=== PATIENT | female | born 1935 | race Caucasian/White ===

== ENCOUNTER 2018-10-11 11:09 | Emergency (ER) | payer OTHER ==
[2018-10-11] MEDS ORDERED: SODIUM CHLORIDE 0.9% 1000ML 1,000 ML IV ONE (11:49)
[2018-10-11 12:26] LABS: CALCIUM 9.2 mg/dl (8.5-10.1); CARBON DIOXIDE 28.7 mEq/L (21-32); CREATININE 1.46 mg/dl (0.60-1.00); INR 0.99 (0.86-1.12); POTASSIUM 3.9 mMol/L (3.5-5.1)
[2018-10-11 12:27] LABS: BASOPHILS % (AUTO) 1 % (0-3); EOSINOPHILS % (AUTO) 1 % (0-9); HEMATOCRIT 39 % (35-47); LYMPHOCYTES % (AUTO) 17.6 % (10-50); MEAN CORPUSCULAR HEMOGLOBIN 29.4 pg (27.0-32.0); MEAN CORPUSCULAR VOLUME 89 fL (81-99); MONOCYTES % (AUTO) 6.1 % (0-12)
[2018-10-11 12:52] LABS: APPEARANCE,URINE Cloudy; BILIRUBIN,URINE NEGATIVE (NEGATIVE); COLOR,URINE Yellow; GLUCOSE, URINE (UA) NEGATIVE (NEGATIVE); KETONES,URINE NEGATIVE (NEGATIVE); LEUKOCYTE ESTERASE ,URINE TRACE (NEGATIVE); NITRATE,URINE NEGATIVE (NEGATIVE); OCCULT BLOOD,URINE NEGATIVE (NEG-TRACE); PH,URINE 7.5; UROBILINOGEN,URINE 0.2 (0.2-1.0 EU)
[2018-10-11 13:05] LABS: BACTERIA 4+ (< 1+); CRYSTALS NEGATIVE (0-3 AVE/HPF); EPITHELIAL CELLS 0-3 (SQUAMOUS); RBC,URINE NEG (0-3AV/HPF)
[2018-10-11] MEDS ORDERED: CIPROFLOXACIN HCL 500 MG TAB PO SCH (13:30)
[2018-10-11] MEDS ORDERED: CIPROFLOXACIN HCL 500 MG TAB PO ONE (13:30)
[2018-10-11] MEDS ORDERED: AMLODIPINE 5 MG TAB PO ONE (14:40)
[2018-10-11] MEDS ORDERED: AMLODIPINE 5 MG TAB ONE (14:42)
[2018-10-11 16:19] VITALS: RESP 18; TEMP 97.3
[2018-10-11 16:20] VITALS: BP 156/78; PULSE 72; O2SAT 95
== END 2018-10-11 16:00 | disposition home or self-care (01) | DRG 641 ==
LOC: ED 11:09
DX: E86.0 Dehydration (principal); N39.0 Urinary tract infection, site not specified; R55 Syncope and collapse; W18.30XA Fall on same level, unspecified, initial encounter; E11.9 Type 2 diabetes mellitus without complications
CPT/HCPCS: 36415; 70450; 71045; 80048; 81001; 85025; 85610; 87077; 87088; 87186; 93005; 96365; 96366; 99284; 99285; G0390; A9270-GY

== ENCOUNTER 2018-12-04 11:16 | Emergency (ER) | payer MEDICARE, OTHER ==
[2018-12-04 11:34] VITALS: PULSE 67; RESP 20; TEMP 97.6
[2018-12-04 12:11] LABS: BASOPHILS % (AUTO) 1 % (0-3); EOSINOPHILS % (AUTO) 2 % (0-9); HEMATOCRIT 35 % (35-47); LYMPHOCYTES % (AUTO) 20.9 % (10-50); MEAN CORPUSCULAR HEMOGLOBIN 29.9 pg (27.0-32.0); MEAN CORPUSCULAR HGB CONC 34.2 gm/dl (32.0-36.0); MEAN CORPUSCULAR VOLUME 88 fL (81-99); MONOCYTES % (AUTO) 6.5 % (0-12); NEUTROPHILS % (AUTO) 69.5 % (37-80)
[2018-12-04] MEDS ORDERED: SODIUM CHLORIDE 0.9% 1000ML 1,000 ML IV SCH (12:15)
[2018-12-04 12:25] LABS: ALBUMIN 3.1 gm/dl (3.4-5.0); BILIRUBIN,TOTAL 0.4 mg/dl (0.2-1.0); CALCIUM 8.5 mg/dl (8.5-10.1); CARBON DIOXIDE 26.3 mEq/L (21-32); CREATININE 1.94 mg/dl (0.60-1.00); TOTAL PROTEIN 6.5 gm/dl (6.4-8.2)
[2018-12-04 16:49] VITALS: BP 164/68; O2SAT 96
== END 2018-12-04 17:25 | disposition home or self-care (01) | DRG 392 ==
LOC: ED 11:16
DX: R19.7 Diarrhea, unspecified (principal); C34.90 Malignant neoplasm of unspecified part of unspecified bronchus or lung; E11.9 Type 2 diabetes mellitus without complications
CPT/HCPCS: 74176; 80053; 82272; 85025; 96365; 99283; 99284

== ENCOUNTER 2018-12-14 10:53 | Emergency (ER) | payer MEDICARE, OTHER ==
[2018-12-14 11:19] VITALS: TEMP 97.6
[2018-12-14] MEDS ORDERED: SODIUM CHLORIDE 0.9% 1000ML 1,000 ML IV ONE ×2 (11:35→11:36)
[2018-12-14 12:02] LABS: BASOPHILS % (AUTO) 1 % (0-3); EOSINOPHILS % (AUTO) 1 % (0-9); HEMATOCRIT 35 % (35-47); HEMOGLOBIN 11.6 gm/dl (12.0-15.5); MEAN CORPUSCULAR HEMOGLOBIN 29.8 pg (27.0-32.0); MEAN CORPUSCULAR HGB CONC 33.3 gm/dl (32.0-36.0); MEAN CORPUSCULAR VOLUME 89 fL (81-99); MONOCYTES % (AUTO) 6.3 % (0-12); NEUTROPHILS % (AUTO) 69.7 % (37-80)
[2018-12-14] MEDS: SODIUM CHLORIDE 0.9% 1000ML 1,000 ML IV ONE ×2 (12:03→13:05)
[2018-12-14 12:15] LABS: ALBUMIN 3.2 gm/dl (3.4-5.0); BILIRUBIN,TOTAL 0.5 mg/dl (0.2-1.0); CALCIUM 8.6 mg/dl (8.5-10.1); CARBON DIOXIDE 25.4 mEq/L (21-32); CREATININE 1.49 mg/dl (0.60-1.00); TOTAL PROTEIN 6.5 gm/dl (6.4-8.2)
[2018-12-14 13:39] LABS: APPEARANCE,URINE Slightly Cloudy; BILIRUBIN,URINE NEGATIVE (NEGATIVE); COLOR,URINE Yellow; GLUCOSE, URINE (UA) NEGATIVE (NEGATIVE); KETONES,URINE NEGATIVE (NEGATIVE); LEUKOCYTE ESTERASE ,URINE 2+ (NEGATIVE); NITRATE,URINE NEGATIVE (NEGATIVE); OCCULT BLOOD,URINE TRACE LYSED (NEG-TRACE); PH,URINE 5.5; UROBILINOGEN,URINE 0.2 (0.2-1.0 EU)
[2018-12-14 13:43] LABS: BACTERIA 3+ (< 1+); CRYSTALS NEGATIVE (0-3 AVE/HPF); EPITHELIAL CELLS 0-3 (SQUAMOUS); RBC,URINE NEG (0-3AV/HPF); WBC,URINE 15-20 (0-5AV/HPF)
[2018-12-14 14:33] VITALS: BP 154/79; PULSE 72; RESP 14; O2SAT 96
== END 2018-12-14 14:34 | disposition home or self-care (01) | DRG 641 ==
LOC: ED 10:53
DX: E86.0 Dehydration (principal); N39.0 Urinary tract infection, site not specified; I50.9 Heart failure, unspecified
CPT/HCPCS: 80053; 81001; 83880; 84484; 85025; 87077; 87088; 87186; 96365; 96366; 99283; 99284

== ENCOUNTER 2018-12-18 13:48 | Emergency (ER) | payer OTHER ==
[2018-12-18 13:56] VITALS: TEMP 97
[2018-12-18 14:17] LABS: BASOPHILS % (AUTO) 1 % (0-3); EOSINOPHILS % (AUTO) 2 % (0-9); HEMATOCRIT 36 % (35-47); HEMOGLOBIN 12.2 gm/dl (12.0-15.5); LYMPHOCYTES % (AUTO) 27.2 % (10-50); MEAN CORPUSCULAR HEMOGLOBIN 30.1 pg (27.0-32.0); MEAN CORPUSCULAR HGB CONC 33.8 gm/dl (32.0-36.0); MEAN CORPUSCULAR VOLUME 89 fL (81-99); NEUTROPHILS % (AUTO) 61.5 % (37-80)
[2018-12-18 17:24] LABS: CARBON DIOXIDE 27.5 mEq/L (21-32); CHLORIDE 101 mMol/L (98-107); CREATININE 1.23 mg/dl (0.60-1.00); GLUCOSE 107 mg/dl (74-106)
[2018-12-18] MEDS ORDERED: POTASSIUM CHLORIDE 10 MEQ TER PO ONE (17:38)
[2018-12-18] MEDS ORDERED: SODIUM CHLORIDE 0.9% 1000ML 1,000 ML IV ONE (17:38)
[2018-12-18] MEDS ORDERED: POTASSIUM CHLORIDE 10 MEQ TER ONE (17:50)
[2018-12-18 18:23] LABS: APPEARANCE,URINE Slightly Cloudy; BILIRUBIN,URINE NEGATIVE (NEGATIVE); COLOR,URINE Yellow; GLUCOSE, URINE (UA) NEGATIVE (NEGATIVE); KETONES,URINE NEGATIVE (NEGATIVE); LEUKOCYTE ESTERASE ,URINE TRACE (NEGATIVE); NITRATE,URINE NEGATIVE (NEGATIVE); OCCULT BLOOD,URINE NEGATIVE (NEG-TRACE); PH,URINE 5.5; UROBILINOGEN,URINE 0.2 (0.2-1.0 EU)
[2018-12-18 18:33] LABS: BACTERIA 4+ (< 1+); CRYSTALS NEGATIVE (0-3 AVE/HPF); EPITHELIAL CELLS 0-1 (SQUAMOUS); RBC,URINE NEG (0-3AV/HPF)
[2018-12-18 19:46] VITALS: BP 157/80; PULSE 67; RESP 20; O2SAT 97
[2018-12-18 23:11] LABS: ALBUMIN 2.9 gm/dl (3.4-5.0); ALKALINE PHOSPHATASE 72 IU/L (46-116); ALT 12 IU/L (14-63); AST 21 IU/L (15-37); BILIRUBIN,TOTAL 0.5 mg/dl (0.2-1.0); BLOOD UREA NITROGEN 21 mg/dl (7-18); CALCIUM 8.1 mg/dl (8.5-10.1); TOTAL PROTEIN 6.1 gm/dl (6.4-8.2); TROP I < 0.017 ng/ml (0.000-0.056)
== END 2018-12-18 19:36 | disposition home or self-care (01) | DRG 149 ==
LOC: ED 13:48
DX: R42 Dizziness and giddiness (principal); E87.6 Hypokalemia; B35.6 Tinea cruris; L60.0 Ingrowing nail; R03.1 Nonspecific low blood-pressure reading
CPT/HCPCS: 36415; 80053; 81001; 84484; 85025; 87077; 87088; 87186; 93005; 96365; 99283; 99285; A9270-GY

== ENCOUNTER 2018-12-23 18:53 | Emergency (ER) | payer OTHER ==
[2018-12-23 19:08] VITALS: TEMP 97.2
[2018-12-23 19:27] LABS: BASOPHILS % (AUTO) 0 % (0-3); EOSINOPHILS % (AUTO) 0 % (0-9); HEMATOCRIT 34 % (35-47); HEMOGLOBIN 11.3 gm/dl (12.0-15.5); LYMPHOCYTES % (AUTO) 11.9 % (10-50); MEAN CORPUSCULAR HEMOGLOBIN 30.6 pg (27.0-32.0); MEAN CORPUSCULAR HGB CONC 33.5 gm/dl (32.0-36.0); MEAN CORPUSCULAR VOLUME 91 fL (81-99); MONOCYTES % (AUTO) 5.1 % (0-12); NEUTROPHILS % (AUTO) 82.4 % (37-80)
[2018-12-23 19:39] LABS: ALBUMIN 3.2 gm/dl (3.4-5.0); BILIRUBIN,TOTAL 0.4 mg/dl (0.2-1.0); CALCIUM 8.4 mg/dl (8.5-10.1); CARBON DIOXIDE 25.3 mEq/L (21-32); CREATININE 2.16 mg/dl (0.60-1.00); TOTAL PROTEIN 6.1 gm/dl (6.4-8.2)
[2018-12-23 23:53] VITALS: RESP 18
[2018-12-23 23:54] VITALS: BP 124/89; PULSE 67; O2SAT 96
== END 2018-12-23 21:20 | disposition short-term general hospital (02) | DRG 536 ==
LOC: ED 18:53
DX: S72.144A Nondisplaced intertrochanteric fracture of right femur, initial encounter for closed fracture (principal); S42.211A Unspecified displaced fracture of surgical neck of right humerus, initial encounter for closed fracture; M25.559 Pain in unspecified hip; W18.30XA Fall on same level, unspecified, initial encounter; R53.1 Weakness; E11.9 Type 2 diabetes mellitus without complications
CPT/HCPCS: 73030; 73501; 80053; 82550; 85025; 99284; 99285